=== PATIENT | female | born 1955 | race Caucasian/White ===

== ENCOUNTER 2020-11-19 05:43 | Day surgery (SDC) | payer MEDICARE, BC ==
[2020-11-19] MEDS ORDERED: Dextrose 5%-Lactated Ringers 1,000 ML IV SCH (06:30)
[2020-11-19] MEDS ORDERED: Midazolam 1 MG/ML 2 ML SDV ONE (06:34)
[2020-11-19] MEDS ORDERED: fentaNYL 100 MCG/2 ML SDV ONE (06:34)
[2020-11-19] MEDS ORDERED: Propofol 200 MG/20 ML SDV ONE ×2 (06:34→08:11)
--- NOTE | 2020-11-20 15:20 | OR ---
DATE OF PROCEDURE: 11/19/2020 SURGEON: Julio Duff MD PREOPERATIVE DIAGNOSIS: History of left colonic diverticulosis. POSTOPERATIVE DIAGNOSIS: Uncomplicated left colonic diverticulosis. PROCEDURE PERFORMED: Flexible colonoscopy. ANESTHESIA: IV sedation. INDICATION FOR PROCEDURE: This is a 65-year-old female presenting for followup screening colonoscopy. She has a history of breast cancer, so she is on a 5-year cycle. Plan is to proceed with a flexible colonoscopy with biopsies and/or polypectomy as indicated. Potential risks including bleeding and perforation were discussed, and the patient wishes to proceed. DETAILS OF PROCEDURE: The patient was taken to the operating room, placed in a left lateral decubitus position. IV sedation was administered after which the initial digital rectal exam was performed and was unremarkable. Colonoscope was then passed into the rectum with retroflexion revealing uncomplicated hemorrhoidal columns. Scope was eventually passed to the level of the cecum. The prep was quite good. To that level, there was some uncomplicated left colonic diverticulosis. Otherwise, no polyps or signs of neoplasia, and no areas of colitis were seen. The scope was then withdrawn, the above findings reconfirmed, and the procedure concluded. The patient was taken to the recovery room in satisfactory condition. The next colonoscopy should be scheduled in 5 years. Julio Duff MD /[id number]
== END 2020-11-19 09:22 | disposition home or self-care (01) ==
LOC: JP.SDS 05:43
PROVIDERS: ATTEND Surgery
DX: Z12.11 Encounter for screening for malignant neoplasm of colon (principal); K57.30 Diverticulosis of large intestine without perforation or abscess without bleeding; K64.9 Unspecified hemorrhoids; Z85.3 Personal history of malignant neoplasm of breast; Z88.0 Allergy status to penicillin
CPT/HCPCS: G0105; J2250; J2704; J3010; J7121